=== PATIENT | male | born 1995 | race Two or more races ===

== ENCOUNTER 2016-09-17 10:47 | Emergency (ER) | payer OTHER ==
[~2016-09-17] VITALS: Ht 165.1 cm; Wt 59.0 kg
[2016-09-17] MEDS ORDERED: NKM (11:01)
[2016-09-17 11:16] VITALS: BP 114/68
[2016-09-17] MEDS ORDERED: IBUPROFEN600 MG ORAL (11:42)
[2016-09-17 11:54] VITALS: BP 115/71
--- NOTE | 2016-09-17 14:48 | Diagnostic Imaging Report ---
Indication: PAIN, injury to the right index finger Technique: 3 views right hand Comparison: none Findings: No acute fractures. No dislocations. Joint spaces are preserved. Impression: Negative
--- NOTE | 2016-09-18 07:57 | Emergency Room Report ---
History of Present Illness General Chief Complaint: Upper Extremity Injury Source: Patient Present Illness HPI Patient presents with complaints of injury to the right index finger This occurred the evening prior Patient essentially reports that the finger was jammed by a dish cart As the pain continued patient was sent in for further evaluation Patient is right-hand dominant Denies any wrist pain denies any elbow pain Denies any other trauma Pain is 4/10 worse with touch Allergies: Coded Allergies: No Known Allergies (Unverified , 09/17/16) Patient History Past Medical History: see triage record Pertinent Family History: none Reviewed Nursing Documentation: PMH: Agreed, PSxH: Agreed Nursing Documentation-PMH Past Medical History: No Stated History Review of Systems All Other Systems: negative except mentioned in HPI Physical Exam Vital Signs Date Time Temp Pulse Resp B/P Pulse Ox O2 Delivery O2 Flow Rate FiO2 09/17/16 10:55 98.2 59 14 114/68 98 Room Air Sp02 EP Interpretation: reviewed, normal General Appearance: well appearing, no apparent distress Head: normocephalic, atraumatic Eyes: bilateral eye EOMI, bilateral eye PERRL ENT: hearing grossly normal, normal pharynx Neck: full range of motion, supple Musculoskeletal: normal range of motion, other - Patient does have some mild erythema and evidence of contusion to the right index finger there is also an abrasion on full-size of the finger appears to be scabbed over, Neurologic: alert, oriented x3, pneumatic tube fitter III-XII nml as tested, motor strength/tone normal Skin: other - As above Lymphatic: no adenopathy Procedures Splinting Splinting : Consent: Verbal Pre-Made Type: metal Splint: finger splint Pre-Proc Neuro Vasc Exam: normal Post-Proc Neuro Vasc Exam: normal Patient Tolerated: Well Complications: None Progress right index finger Medical Decision Making Diagnostic Impression: Primary Impression: finger contusion Additional Impression: finger abrasion ER Course Imaging study does not reveal any acute pathology Patient had splint applied for symptomatic improvement and stable for close outpatient followup Other X-Ray Diagnostic Results Other X-Ray Diagnostic Results : EP Interpretation: Yes Findings: no fractures, no dislocation, no soft tissue swelling Number of Views: 3 - right hand Last Vital Signs Date Time Temp Pulse Resp B/P Pulse Ox O2 Delivery O2 Flow Rate FiO2 09/17/16 11:54 73 18 115/71 100 Room Air 09/17/16 11:16 98.2 Status: improved Disposition: HOME, SELF-CARE Condition: Stable Scripts Ibuprofen* (MOTRIN*) 600 Mg Tablet 600 MG ORAL Q8H Y for For Pain, #20 TAB 0 Refills Prov: HERNANDEZ CAMPBELL D.O. 09/17/16 Referrals: NOT CHOSEN [facility]/MD,REFERRING (PCP) Patient Instructions: Contusion, [id number], Abrasion Additional Instructions: Patient is provided with the discharge instructions notified to follow up with primary doctor in the next 2-3 days otherwise return to the er with any worsening symptoms. Please note that this report is being documented using DRAGON technology. This can lead to erroneous entry secondary to incorrect interpretation by the dictating instrument. HERNANDEZ CAMPBELL D.O. Sep 18, 2016 07:57
== END 2016-09-17 11:56 | disposition home or self-care (01) ==
LOC: EMR 11:32
DX: S60.021A Contusion of right index finger without damage to nail, initial encounter (principal); S60.410A Abrasion of right index finger, initial encounter; W22.8XXA Striking against or struck by other objects, initial encounter; Y92.511 Restaurant or cafe as the place of occurrence of the external cause; Y99.0 Civilian activity done for income or pay
CPT/HCPCS: 29280; 99283